=== PATIENT | female | born 1980 | race Caucasian/White ===

== ENCOUNTER 2019-09-08 19:11 | Emergency (ER) | payer BC, OTHER ==
[2019-09-08 20:17] VITALS: BP 138/64
--- NOTE | 2019-09-08 20:24 | UC ---
General HPI - HPI Summary HPI Summary: Treva 39 yo female, c/o cough, congestion, some upper back discomfort. Has prescription inhalers. No fever / chills. No rash. Minimal sore throat. No GI upset. No dysuria / hematuria. 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 Pain Intensity: 4 - Allergy/Home Medications Allergies/Adverse Reactions: Allergies Allergy/AdvReac Type Severity Reaction Status Date / Time No Known Allergies Allergy Verified 09/08/19 20:13 Home Medications: Home Medications Albuterol inh POWDER (NF) [Proair Respiclick] 108 mcg IN Q4HR PRN 09/08/19 [ History Confirmed 09/08/19] Fluticasone-Salmeterol 250-50* [Advair Diskus 250-50*] 1 puff INH BID 09/08/19 [ History Confirmed 09/08/19] Levocetirizine Dihydrochloride [Levocetirizine Dihydrochl] 5 mg PO DAILY [History Confirmed 09/08/19] Levothyroxine TAB* [Synthroid TAB*] 100 mcg PO DAILY 09/08/19 [History Confirmed 09/08/19] PMH/Surg Hx/FS Hx/Imm Hx Previously Healthy: Yes - Surgical History Surgical History: Yes Surgery Procedure, Year, and Place: C-sections - Family History Known Family History: Positive: Non-Contributory - Social History Alcohol Use: None Substance Use Type: None Smoking Status (MU): Never Smoked Tobacco Household Exposure Type: Cigarettes Review of Systems All Other Systems Reviewed And Are Negative: Yes Constitutional: Positive: Fatigue Skin: Positive: Negative Eyes: Positive: Negative ENT: Positive: Nasal Discharge Respiratory: Positive: Cough Cardiovascular: Positive: Negative Gastrointestinal: Positive: Negative Genitourinary: Positive: Negative Motor: Positive: Negative Neurovascular: Positive: Negative Musculoskeletal: Positive: Negative Neurological/Mental Status: Positive: Negative Psychological: Positive: Negative Is Patient Immunocompromised?: No Physical Exam Triage Information Reviewed: Yes Appearance: Well-Nourished - sitting up, conversing in full sentances Vital Signs: Initial Vital Signs Temp 98.3 F 09/08/19 20:10 Pulse 69 09/08/19 20:10 Resp 20 09/08/19 20:10 BP 138/64 09/08/19 20:10 Pulse Ox 100 09/08/19 20:10 Vital Signs Reviewed: Yes Eye Exam: Normal ENT: Positive: Pharyngeal erythema - mild post pharyng redness, no sores / exudates, Nasal congestion, Nasal drainage, TM dull Neck exam: Normal Neck: Positive: Supple, Nontender, No Lymphadenopathy Respiratory Exam: Other - + tight upper chest bs, course. No resp distress, no rales Respiratory: Positive: No respiratory distress Cardiovascular Exam: Normal Cardiovascular: Positive: RRR, Pulses Normal, Brisk Capillary Refill Abdominal Exam: Normal Abdomen Description: Positive: Nontender Musculoskeletal Exam: Normal - moves x 4 ext's gait steady Neurological Exam: Normal - grossly nonfocal Psychological Exam: Normal - nad Skin Exam: Normal - nondiaphoretic no visible or reported rash Course/Dx - Course Course Of Treatment: REviewed ancillary results with Ms. Adalberto Yousif. I think she will benefit from a home nebulizer, she will look into this. Duoneb x 1 here. Pred taper, reports that this has helped in the past. Will rx possible additional sinusitis as well as bronchitis. + cough, requests something to help. Usual narc talk, no issues. ISTOP consulted several times but, system error. She will f/u with PCP in the next couple weeks. Questions as posed answered to the best of my ability. - Diagnoses Provider Diagnosis: Wheezing, Bronchitis Discharge ED - Sign-Out/Discharge Documenting (check all that apply): Patient Departure All imaging exams completed and their final reports reviewed: No Studies - Discharge Plan Condition: Stable Disposition: HOME Prescriptions: Albuterol 2.5MG/3ML (0.083%)* [Ventolin 2.5 MG/3 ML NEB.LEONCIO*] 2.5 mg INH Q6H PRN #25 vial PRN Reason: Wheezing Amoxicillin PO (*) [Amoxicillin 875 MG (*)] 875 mg PO BID #20 tab guaiFENesin/CODIENE 100mg/10mg [Robitussin AC 100Mg/10Mg in 5 ml] 10 ml PO Q6H PRN #200 ml MDD 40 PRN Reason: Cough predniSONE 10 mg TAB [Deltasone 10 MG TAB*] 10 mg PO DAILY #20 tab Patient Education Materials: Acute Bronchitis (ED), Wheezing (ED) Print Language: MONTSERRATIAN Referrals: Mary Cho PA [Primary Care Provider] - - Billing Disposition and Condition Condition: STABLE Disposition: Home
[2019-09-08 20:42] LABS: Influenza A Molecular Negative (Negative); Influenza B Molecular Negative (Negative)
[2019-09-08] MEDS ORDERED: Albuterol/Ipratropium NEB.SOL* Albuterol 2.5 MG/Ipratropium 0.5 MG 3 ML INH ONE (20:54)
== END 2019-09-08 21:26 | disposition home or self-care (01) ==
LOC: UCCORT 19:11
DX: J40 Bronchitis, not specified as acute or chronic (principal); R06.2 Wheezing
CPT/HCPCS: 87651; 99213; A9270-GY; G0463

== ENCOUNTER 2021-06-13 10:09 | Inpatient (IN) ==
[~2021-06-13 10:09] MED LIST: Buffered Lidocaine 1% SYRIN 1 ml INTRADERM ONE; DiMENhydriNATE IV 50 mg/ml 1 ml VIAL IV PUSH ONE; Lactated Ringers 1000 ml BAG 1,000 ML IV SCH; Naloxone 0.4 mg VIAL 0.4 mg/ml 1 ml VIAL IV PRN; Ondansetron 4 mg VIAL 2 MG/ML 2 ml VIAL IV PRN
[2021-06-13] MEDS ORDERED: DiMENhydriNATE IV 50 mg/ml 1 ml VIAL ONE (10:33)
[2021-06-13] MEDS ORDERED: ceFAZolin 2 GM in NS PREMIX 2 GM/100 ML BAG IVPB ONE (10:33)
[2021-06-13] MEDS ORDERED: Heparin 5000 UNITS/ML 1 mL VIAL ONE (10:33)
[2021-06-13] MEDS ORDERED: fentaNYL 100 mcg/2 ml 50 MCG/ML VIAL ONE ×2 (11:11→14:18)
[2021-06-13] MEDS ORDERED: Rocuronium 50 mg VIAL 10 mg/ml 5 ml VIAL (50 mg) ONE (11:11)
[2021-06-13] MEDS ORDERED: Midazolam 2 mg/2 ml VIAL 1 mg/ml 2 ml VIAL (2 mg) ONE (11:11)
[2021-06-13] MEDS ORDERED: Bupivacaine 0.5% 50 ML MDV VIAL ONE (11:18)
[2021-06-13] MEDS ORDERED: Lidocaine 1% w EPI 1:100,000 MDV 20 ML VIAL ONE (11:19)
[2021-06-13] MEDS ORDERED: Phenylephrine 40 mcg/mL 10mL (400mcg) SYRINGE ONE (12:18)
[2021-06-13] MEDS ORDERED: Morphine 10 MG/ML VIAL (1 ml) ONE (13:04)
[2021-06-13] MEDS ORDERED: HYDROmorphone 0.5 MG/0.5 ML SYRINGE IV SLOW PU PRN (14:13)
[2021-06-13] MEDS ORDERED: Ondansetron 4 mg VIAL 2 MG/ML 2 ml VIAL IV PRN (14:13)
[2021-06-13] MEDS: fentaNYL 100 mcg/2 ml 50 MCG/ML VIAL IV PRN ×2 (14:19→14:25)
[2021-06-13] MEDS ORDERED: Ondansetron 4 mg VIAL 2 MG/ML 2 ml VIAL ONE (14:26)
[2021-06-13] MEDS ORDERED: Dextrose 50% Syringe 50 ml 25 GM/50 ML SYRINGE ONE (14:35)
[2021-06-13] MEDS: HYDROmorphone 1 MG/1 ML SYRINGE IV PRN ×3 (15:20→15:30)
[2021-06-13] MEDS ORDERED: HYDROmorphone 1 MG/1 ML SYRINGE ONE (15:25)
[2021-06-13] MEDS: Lactated Ringers 1000 ml BAG 1,000 ML IV SCH ×2 (16:48→23:48)
[2021-06-13] MEDS: Mometasone/Formoter 200/5 MDI INH SCH (20:06)
[2021-06-13] MEDS: Heparin 5000 UNITS/ML 1 mL VIAL SUBCUT SCH (23:47)
[2021-06-14] MEDS ORDERED: Lactated Ringers 1000 ml BAG 1,000 ML IV SCH (06:00)
[2021-06-14] MEDS ORDERED: Buffered Lidocaine 1% SYRIN 1 ml INTRADERM ONE (06:00)
[2021-06-14] MEDS: Heparin 5000 UNITS/ML 1 mL VIAL SUBCUT SCH ×3 (06:21→20:31)
[2021-06-14] MEDS: Mometasone/Formoter 200/5 MDI INH SCH ×2 (07:18→19:09)
[2021-06-14] MEDS: Lactated Ringers 1000 ml BAG 1,000 ML IV SCH (07:41)
[2021-06-14] MEDS: HYDROcodone/ACET. 7.5/325 LIQ 15 ML UDC PO PRN (10:45)
[2021-06-14] MEDS: D5W 1/2 NS KCl 20 meq 1000 ml 1,000 ML IV SCH (15:49)
[2021-06-15] MEDS: D5W 1/2 NS KCl 20 meq 1000 ml 1,000 ML IV SCH (01:59)
[2021-06-15] MEDS: Heparin 5000 UNITS/ML 1 mL VIAL SUBCUT SCH (05:16)
[2021-06-15] MEDS: HYDROcodone/ACET. 7.5/325 LIQ 15 ML UDC PO PRN (07:46)
[2021-06-15] MEDS: Mometasone/Formoter 200/5 MDI INH SCH (08:46)
[2021-06-15 11:30] VITALS: BP 119/78
[2021-06-16] MEDS ORDERED: Scopolamine PATCH Remove NOTE PATCH OFF SCH (11:00)
== END 2021-06-15 12:00 | disposition home or self-care (01) | DRG 403 ==
LOC: AA 10:09 → SSU 16:15
PROVIDERS: ADMIT Surgery; ATTEND Surgery